=== PATIENT | female | born 1945 | race Caucasian/White ===

== ENCOUNTER → 2023-04-15 | Outpatient (CLI) | payer MEDICARE ==
[~2023-04-15] VITALS: Ht 160 cm; Wt 66.7 kg
[~2023-04-15] MED LIST: ADENOSINE 56 MG in GIVE UN-DILUTED 0 ML IV ONE
== END | disposition home or self-care (01) ==
LOC: XYW 08:24
PROVIDERS: ATTEND Internal Medicine
DX: I20.81 Angina pectoris with coronary microvascular dysfunction (principal); E78.5 Hyperlipidemia, unspecified
CPT/HCPCS: 78452; 93017; A9500; J0153